=== PATIENT | male | born 1995 | race Caucasian/White ===

== ENCOUNTER 2017-01-29 08:31 | Emergency (ER) | payer MEDICAID, OTHER ==
--- NOTE | 2017-01-29 08:41 | ED Physician Chart ---
Chief Complaint/HPI - Patient Information Date Seen:: 01/29/17 Time Seen:: 08:36 Chief Complaint:: FINGER INJURY JUST PRIOR TO ADM History of Present Illness:: This 21-year-old right handed male sustained an injury to his left fifth digit when he was catching a football. This occurred just prior to admission he complains of pain in the PIP region of the finger. He is unable to flex the fifth digit. Since the severity of the pain as a 5/10 which is made worse with attempts to move the finger. Patient sustained no other injuries. No other associated symptoms. Review of Systems - Review of Systems General/Constitutional: No fever, No chills, No weakness Skin: No skin lesions, No rash, No bruising Head: No headache, No light-headedness Eyes: No loss of vision, No diplopia ENT: No earache Neck: No neck pain, No swelling Cardio Vascular: No chest pain, No palpitations, No edema Pulmonary: No SOB, No cough, No sputum GI: No nausea, No vomiting, No diarrhea, No pain G/U: No dysuria, No frequency, No hematuria Musculoskeletal: Bone or joint pain (pain in the left fifth digit at the level of the PIP on the flexor surface. No deformity present.) Past Medical History - Past Medical History Past Medical History: No significant medical hx (smokes one to 2 cigarettes per month and uses alcohol rarely. No illicit drug use. The patient is right handed and works in construction) Social History: No Drug Use, Single, Employed Family Medical History - Family Member Mother History Unknown: Yes Physical Exam - Physical Examination General/Constitutional: Awake, Well-developed, well-nourished, Alert, No distress, Non-toxic appearing, Ambulatory Head: Atraumatic Eyes: PERRL, EOMI Skin: Nl inspection, No rash, No ecchymosis ENMT: External ears, nose nl, Lips, teeth, gums nl, Oropharynx nl Neck: Nontender, Full ROM w/o pain, No JVD, No nuchal rigidity, No bruit, No mass Other Neck comments:: Left side of the neck with a lipstick imprint tattoo. Respiratory: Nl effort/Exclusion, Clear to Auscultation, No Wheeze/Rhonchi/Rales Cardio Vascular: RRR, No murmur, gallop, rubs, NL S1 S2 GI: No tenderness/rebounding/guarding, No organomegaly, No hernia, No mass/ bruits, No McBurney tenderness : No CVA tenderness Other Extremities comments:: The patient was unable to flex his left small finger but there was no visible deformity. He was maximally tender over the PIP joints. There is no evidence of a sublingual hematoma. No lacerations. Neuro/Psych: Alert/oriented, Normal sensory exam, Judgement/insight normal, Mood normal, Normal gait, No focal deficits Misc: Normal back, No paraspinal tenderness Labs/Radiology/EKG Results - Lab Results Results: LT 5TH DIGIT, 3 VIEWS. SMALL AVULSION FRACTURE OFF THE PROXIMAL END OF THE MIDDLE PHALANX. DISLOCATION OF THE PIP JOINT. NO SOFT TISSUE FOREIGN BODIES. IMPRESSION: DISLOCATION OF THE PIP JOINT OF THE 5TH DIGIT WITH A SMALL AVULSION FRACTURE OFF THE PROXIMAL END OF THE MIDDLE PHALANX.. POST REDUCTION VIEW OF THE 5TH LT DIGIT SHOWS NORMAL ANATOMY AT THE PIP WITH A SMALL RESIDUAL AVULSION FRACTURE. NO FOREIGN BODY. IMPRESSION: SUCCESSFUL PIP REDUCTION. Assessment - Assessment General Assessment: CASE SUMMARY: This 21-year-old male presents with an injury to the fifth left digit when he was catching a football. His vital examination there was no noted deformity but the patient had marked limitation of flexion at the PIP joint. An x-ray study showed a dislocation of the PIP joint and a small evulsion fracture off of the middle phalanx. The dislocation was reduced with traction and confirmed by x-ray. Patient was placed in a finger splint and advised to follow-up with his primary care physician sometime within the next week or 2. Discharged in stable condition. THE PT SAYS THE FINGER FEELS MUCH BETTER SPLINTED. NORMAL CAP REFILL OF NAIL BED. MDM DDX BLUNT INJURY TO LT 5TH DIGIT: NOT Open fracture based on physical examination. NOT Sub-Ungal hematoma based on physical examination. NOT comminuted fracture based on x-ray ED Septic Shock - . Is Septic Shock (SBP<90, OR Lactate>4 mmol\L) present?: No Reassessment (Disposition) - Reassessment Reassessment Condition:: Improved - Diagnosis Diagnosis:: DISLOCATION OF THRE PIP JOINT, LEFT 5TH DIGIT. - Aftercare/Follow up Instructions Aftercare/Follow-Up Instructions:: Counseled pt regarding lab results/diagnosis & need follow up, Counseled pt & family regarding lab results/diagnosis & need follow up Notes:: Patient is advised to follow-up with his primary care physician and for possible orthopedic referral. He can use ibuprofen or acetaminophen for pain control. ED Discharge Plan - Patient Disposition Admit/Discharge/Transfer: PT DISCHARGED HOME Condition at Disposition: Stable Instructions: Avulsion Fracture Accepting Physician: Scott Russell [Active] -
--- NOTE | 2017-01-29 09:37 | Diagnostic Imaging Report ---
Exam: Left fifth finger 6 views HISTORY: Injury Findings: Multiple views of the left fifth finger reviewed. The study demonstrates a avulsion fracture at the base of the middle phalanx extending into the joint space. This avulsion is fragment there is approximately 4 mm. There is evidence of for the medial posterior dislocation of the middle interphalangeal joint.. On the post reduction examination there is evidence of satisfactory reduction of the previously described dislocation of the middle interphalangeal joint. Again noted small avulsion fracture fragment anterior to the middle interphalangeal joint. IMPRESSION: Medial posterior dislocation with avulsion fracture of the proximal aspect of the middle phalanx left fifth finger with satisfactory reduction.
== END 2017-01-29 09:20 | disposition home or self-care (01) ==
LOC: ER 08:31
DX: S63.287A Dislocation of proximal interphalangeal joint of left little finger, initial encounter (principal); F17.210 Nicotine dependence, cigarettes, uncomplicated; X58.XXXA Exposure to other specified factors, initial encounter; Y93.61 Activity, american tackle football; Y92.89 Other specified places as the place of occurrence of the external cause; Y99.8 Other external cause status
CPT/HCPCS: 73140-TC-F4; Z7502